=== PATIENT | female | born 1945 | race Caucasian/White ===

== ENCOUNTER → 2023-09-01 11:14 | Outpatient (REF) | payer OTHER, SELFPAY ==
[2023-09-01] MEDS: LEXISCAN 0.400000000000000022 MG IV (12:51)
== END ==
LOC: RCS 11:14
PROVIDERS: ATTENDING PHYSICIAN Internal Medicine Cardiovascular Disease; FAMILY PHYSICIAN Internal Medicine
DX: Z01.810 Encounter for preprocedural cardiovascular examination (principal)
CPT/HCPCS: 78452; 93017; A9500; J2785

== ENCOUNTER 2023-09-05 09:57 | Inpatient (IN) | payer OTHER, SELFPAY ==
--- NOTE | 2023-08-01 11:54 | CM ---
Addendum entered by KIRSTIE Charlton 08/05/23 12:32:
Patient called to get information on getting script for pre hab. SHe will call MILTON Lugo instructional technology coach to get script. SHe has decided to do outpatient PT at [facility] not using [facility].
Original Note:
Patient is scheduled for an elective L TKR on 09/05/23. Spoke with patient prior to surgery via telephone. Introduced role of Orthopedic Navigator. Patient reports that she lives with her in a one story home. There is one step to enter. She
currently functions independently. She has a rolling walker. She has never had VN services. PCP is Nelly Dukes.
Discussed orthopedic program and post surgical plans. Reviewed anticipated length of stay and that goal is for her to return home at discharge. Also reviewed outpatient PT. Patient is in agreement with tentative plan and will go directly to
outpatient PT at [facility]. She will have support from her when she goes home.
Patient will complete online education.
Plan: Orthopedic Navigator will remain available to assist with the care of patient and will reassess discharge needs after surgery.
[2023-08-17 13:06] VITALS: BMI 31.0
[2023-08-17 13:46] LABS: Hematocrit 45.7 % (37.0-47.0); Hemoglobin 15.3 g/dL (12.0-16.0); Mean Corp Hgb Conc. 33.5 g/dL (33.0-37.0); Mean Corpuscular Hgb 27.8 pg (27.0-31.0); Mean Corpuscular Volume 83.1 fL (81.0-99.0); Platelet Count 284 10^3/uL (130-400); Red Cell Dist. Width 14.5 % (11.5-14.5); White Blood Cell Count 7.5 10^3/uL (4.8-10.8)
[2023-08-17 14:22] LABS: ALT (SGPT) 25 U/L (0-35); AST (SGOT) 34 U/L (14-36); Albumin 4.3 g/dl (3.5-5.0); Alkaline Phosphatase 105 U/L (38-126); Blood Urea Nitrogen 12 mg/dl (7-17); Calcium 10.2 mg/dl (8.4-10.2); Carbon Dioxide 28 mmol/L (22-30); Chloride 99 mmol/L (98-107); Estimated Creatinine Clearance 65 ml/min; Glucose 104 mg/dl (70-99); Potassium 4.2 mmol/L (3.5-5.1); Sodium 139 mmol/L (135-145); Total Bilirubin 0.5 mg/dl (0.2-1.3); Total Protein 7.3 g/dl (6.3-8.2); eGFR > 60.00
[2023-08-17 14:27] LABS: Glycohemoglobin (HgbA1c) 6.1 % (4.0-5.6)
[2023-08-17 14:58] VITALS: BMI 31.0
[2023-09-05] VITALS (16 sets, daily range): BP systolic 140–213; BP diastolic 70–119; PULSE 83–100; O2SAT 93–94
[2023-09-05] MEDS: NORMOSOL-R 1000 IV ×2 (10:30→15:23)
[2023-09-05] MEDS: TYLENOL 650 MG PO ×4 (10:37→23:24)
[2023-09-05] MEDS: CELEBREX 200 MG PO (10:37)
[2023-09-05] MEDS: APRESOLINE 5 MG IV (10:53)
[2023-09-05] MEDS: ROXICODONE 5 MG PO ×2 (15:27→23:24)
--- NOTE | 2023-09-05 16:16 | PTCARENOTE ---
1600: Patient arrived to 2S post L TKR. Aquacell on L knee is clean dry and intact. IVF running per order. Call valenzuela within reach and bed in lowest position. at bedside.
[2023-09-05] MEDS: COZAAR 50 MG PO (17:54)
[2023-09-05] MEDS: VALIUM 5 MG PO (17:54)
[2023-09-05] MEDS: LANOXIN 125 MCG PO (18:07)
[2023-09-05] MEDS: NEURONTIN 300 MG PO (21:26)
[2023-09-05] MEDS: SENOKOT PO (21:26)
[2023-09-05] MEDS: COLACE PO (21:26)
[2023-09-05] MEDS: DECADRON 4 MG PO (21:26)
[2023-09-05] MEDS: BACTROBAN 2% OINTMENT 1 APPLIC NASAL (21:27)
[2023-09-05] MEDS: ANCEF 5 IV (21:27)
[2023-09-05] MEDS: ELIQUIS 2.5 MG PO (21:27)
[2023-09-06] VITALS (8 sets, daily range): BP systolic 146–183; BP diastolic 81–105; PULSE 99–111; O2SAT 94–95
[2023-09-06] MEDS: TYLENOL 650 MG PO ×3 (03:33→11:55)
[2023-09-06] MEDS: ANCEF 5 IV (03:33)
[2023-09-06] MEDS: MAGNESIUM OXIDE 500 MG PO (07:54)
[2023-09-06] MEDS: SENOKOT 17.1999999999999993 MG PO (07:55)
[2023-09-06] MEDS: CARDIZEM CD 300 MG PO (07:55)
[2023-09-06] MEDS: COLACE 100 MG PO (07:56)
[2023-09-06] MEDS: VALIUM 5 MG PO (07:56)
[2023-09-06] MEDS: ELIQUIS 2.5 MG PO (07:56)
[2023-09-06] MEDS: BACTROBAN 2% OINTMENT 1 APPLIC NASAL (07:57)
[2023-09-06] MEDS: DECADRON 4 MG PO (07:57)
[2023-09-06] MEDS: TOPROL XL 100 MG PO (07:57)
--- NOTE | 2023-09-06 08:41 | CM ---
Addendum entered by Ailin Rico 09/06/23 12:31:
Patient did well with therapy. She and ehr have no concerns about discharge plans.
Original Note:
Reviewed chart and held rounds with PT, OT and nursing. Patient admitted as planned for elective L TKR. Met with patient and her at bedside. Confirmed information previously obtained for assessment. Also discussed discharge plans. The plan
is for patient to return home at discharge. She will have support from her when she goes home. Patient will go directly to outpatient PT. She has an appointment scheduled for Tuesday, 09/06.
Patient has a rolling walker, cane and shower seat.
She will use [facility] for discharge prescriptions.
[2023-09-06] MEDS: ROXICODONE 5 MG PO (10:20)
--- NOTE | 2023-09-06 10:30 | PTCARENOTE ---
Pt with continued hypertension, Shivani Mckeon Pa-c to bedside and aware. Stat medication ordered and given. Care remains ongoing.
[2023-09-06] MEDS: TOPROL XL 50 MG PO (10:47)
[2023-09-06] MEDS: LANOXIN 125 MCG PO (11:54)
--- NOTE | 2023-09-06 11:55 | W.PN.ORTHO ---
Today's Communication / Plan
-
d/c
Assessment
.
Distal Motor Intact: Yes
Dressing:
Clean, dry and intact.
Assessment:
Afibb-stable on tele
HTN-additional Toprol--f/u cardiology
Plan
.
Surgery / Date: Jasson Solorzano 09/05/23
DVT Prophylaxis: Other (Eliquis)
Activity:
Out of bed.
PT/OT
Discharge Plan: Home w/ Outpatient PT
Subjective
.
.:
Patient resting comfortably.
Vital Signs and Labs
.
Vital Signs and Labs:
Lab Results
08/17/23 13:03
08/17/23 13:03
Temp Pulse Resp BP Pulse Ox
98.1 F 99 18 181/81 95
09/06/23 11:00 09/06/23 11:00 09/06/23 11:00 09/06/23 11:00 09/06/23 11:00
Non-invasive Hgb result: 12.2
Physical Exam
-
HEENT: No pallor, cyanosis, or jaundice. Throat clear.
NECK: Supple. No JVD.
RESPIRATORY: Lungs clear to auscultation.
CVS: S1, S2 irreg irreg.� No murmur, rub or gallop.
ABDOMEN: Soft, non-tender. No distension. BS+/normal.
EXTREMITIES: strength equal, no calf pain with palpation
CREDIT CONSULTANT: AOx3. No focal deficits. survey research manager grossly intact
--- NOTE | 2023-09-06 12:18 | W.DS.TRANS ---
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
-
Discharge Instructions:
Sleep Apnea Risk Low
Discharge Diagnosis/Procedures L TKA Dr. Solorzano 09/05/23
Diet As tolerated
Activity With Walker
Driving Restrictions No driving
Bathing Restrictions OK to Shower
Other Services PT
Instructions:
Stand-Alone Forms: Total Hip/Knee Replacement D/C
Changes to Home Medications: Yes
Discharge Medications:
DC Medications w/original date entered in [employer]
esomeprazole magnesium 40 mg capsule,delayed release (Nexium) 40 mg PO DAILY Gastrointestinal Issue 05/28/14
losartan 100 mg tablet (Cozaar) 100 mg PO QPM Blood Pressure 05/28/14
diazepam 5 mg tablet 5 mg PO DAILY PRN ANXIETY 08/11/23
metoprolol succinate 100 mg tablet,extended release 24 hr 100 mg PO DAILY Blood Pressure 08/11/23
multivitamin 1 tab PO DAILY Supplement 08/11/23
vit C 250 mg-vit E 90 mg-zinc 40 mg-copper 1 ms-[id number] capsule (PreserVision AREDS-2) 1 tab PO BID Supplement 08/11/23
mupirocin 2 % topical ointment 1 applic topical BID infection prevention #1 tube 08/17/23
calcium carbonate 500 mg-vitamin D3 5 mcg (200 unit) tablet (Oyster Shell Calcium-Vitamin D3) 500 mg PO BID Supplement 09/05/23
digoxin 62.5 mcg (0.0625 mg) tablet 125 mcg PO DAILY Heart Failure 09/05/23
diltiazem HCl 240 mg capsule,extended release 24 hr 300 mg PO DAILY Heart Disease/Condition 09/05/23
magnesium oxide 500 mg PO DAILY Electrolyte Repletion 09/05/23
acetaminophen 500 mg tablet 1,000 mg (2 x 500 mg) PO QID #0 tabs 09/06/23
apixaban 5 mg tablet (Eliquis) 2.5 mg (1/2 x 5 mg) PO BID Blood Clot Prevention/Tx/Afibb #0 tabs 09/06/23
docusate sodium 100 mg capsule (Colace) 100 mg PO BID stool softner #1 cap 09/06/23
gabapentin 300 mg capsule 300 mg PO HS sleep/pain #10 caps 09/06/23
magnesium hydroxide 400 mg/5 mL oral suspension (Milk of Magnesia) 30 ml PO HS PRN Constipation #1 mL 09/06/23
oxycodone 5 mg tablet 5 mg PO Q6H PRN 1 tab moderate pain, 2 tabs severe pain #30 tabs 09/06/23
sennosides 8.6 mg tablet (Senokot) 17.2 mg (2 x 8.6 mg) PO BID laxative #2 tabs 09/06/23
Home Medication Changes
apixaban 5 mg tablet (Eliquis) 2.5 mg (1/2 x 5 mg) PO BID Blood Clot Prevention/Tx/Afibb #0 tabs 09/06/23�
gabapentin 300 mg capsule 300 mg PO HS sleep/pain #10 caps 09/06/23�
oxycodone 5 mg tablet 5 mg PO Q6H PRN 1 tab moderate pain, 2 tabs severe pain #30 tabs 09/06/23�
Pending Results: No
== END 2023-09-06 13:09 | disposition home or self-care (01) | DRG 470 ==
LOC: 2 SOUTH 09:57
PROVIDERS: ADMITTING PHYSICIAN Specialist; FAMILY PHYSICIAN Internal Medicine
PROC: 0SRD0J9 Replacement of Left Knee Joint with Synthetic Substitute, Cemented, Open Approach (ICD-10-PCS; 2023-09-05)
DX: M17.12 Unilateral primary osteoarthritis, left knee (principal); I48.21 Permanent atrial fibrillation; I10 Essential (primary) hypertension; M85.80 Other specified disorders of bone density and structure, unspecified site; K21.9 Gastro-esophageal reflux disease without esophagitis; G47.00 Insomnia, unspecified; E78.2 Mixed hyperlipidemia; R73.03 Prediabetes; E78.1 Pure hyperglyceridemia; E55.9 Vitamin D deficiency, unspecified; F41.9 Anxiety disorder, unspecified; E66.9 Obesity, unspecified; Z68.31 Body mass index [BMI] 31.0-31.9, adult; Z85.828 Personal history of other malignant neoplasm of skin; Z79.01 Long term (current) use of anticoagulants; Z79.899 Other long term (current) drug therapy
CPT/HCPCS: 36415; 73560; 80053; 83036; 85027; 87070; 97110; 97116; 97166; 97535; C1713; C1776